=== PATIENT | male | born 1935 | race Two or more races ===

== ENCOUNTER 2024-03-29 18:39 | Inpatient (IN) | payer OTHER ==
[~2024-03-29] VITALS: Ht 167.6 cm; Wt 86.2 kg
[2024-03-29 18:55] LABS: HEMATOCRIT 32.7 % (39.0-48.0); HEMOGLOBIN 10.8 g/dL (13-16.00); MEAN CELL VOLUME 98.5 fL (80.0-100.00); MEAN CORPUSCULAR HEMOGLOBIN 32.5 pg (27.00-32.0); PLATELET COUNT 324 K/uL (150-450); RED BLOOD COUNT 3.32 M/uL (4.00-6.00); RED CELL DISTRIBUTION WIDTH 15.9 % (11.5-14.5)
[2024-03-29] MEDS ORDERED: NITROGLYCERIN IN 5 % DEXTROSE 50 MG/250 ML KIT IV SCH (19:00)
[2024-03-29 19:18] LABS: INR 1.05; PARTIAL THROMBOPLASTIN TIME 25.6 SECONDS (22.0-34.0); PROTHROMBIN TIME 11.4 SECONDS (9.0-11.5)
[2024-03-29 19:22] LABS: CREATININE SERUM 1.4 mg/dL (0.70-1.30); GFR 47.72; POTASSIUM 5.18 mEq/L (3.5-5.1)
[2024-03-29] MEDS ORDERED: GLUMETZA1000 MG (19:39)
[2024-03-29] MEDS ORDERED: MEMANTINE HCL10 MG (19:39)
[2024-03-29] MEDS ORDERED: TAMS0.4C (19:39)
[2024-03-29] MEDS ORDERED: AMLODIPINE-OLM1 EAC2 (19:40)
[2024-03-29] MEDS ORDERED: COZAAR25 MG (19:40)
[2024-03-29] MEDS ORDERED: TOPROL XL25 M1 (19:40)
[2024-03-29] MEDS ORDERED: PROTONIX40 MG (19:40)
[2024-03-29] MEDS ORDERED: PRAVASTATIN SOD10 MG (19:40)
[2024-03-29] MEDS ORDERED: ARICEPT5 MG (19:40)
[2024-03-29] MEDS ORDERED: ZOLOFT25 MG (19:41)
[2024-03-29] MEDS ORDERED: MIRTAZAPINE7.5 MG (19:41)
[2024-03-29] MEDS ORDERED: OXYBUTYNIN CHL2.5 MG (19:41)
[2024-03-29] MEDS ORDERED: SINGULAIR4 MG (19:41)
[2024-03-29] MEDS ORDERED: RESTORIL7.5 MG (19:41)
--- NOTE | 2024-03-29 19:42 | NUR ---
SE RECIBE PTE ALERTA Y ORIENTADO X 3 ESFERAS EN AMBULANCIA EN COMPANIA DE FAMILIAR QUIEN REFIERE DIFICULTAD RESP DESDE HACE VARIOS SALDIVAR,PTE PRESENTA DIFICULTAD REP CON USO DE MUSCULOS ACCESORIOS CON [place] NON-REBEATRING.VENOPUNCION INFILTRADA,SE RETIRA LA MISMA.SE UBICA EN AREA DE CRITICO Y SE PRESENTA A DRA SHORT.SE LE EXTRAEN MUESTRAS BAJO MEDIDAS ASEPTICAS,SE CANALIZA Y SE ADMINISTRAN MEDICAMENTOS MIAN ORDEN MEDICA.SE INSERTA MACARIO,SE [place] PANAL,SE CONECTA A MOMITOR CARDIACO Y OXIMETRIA,SE REALIZA EKG,SE NOTIFICAN ABG A MR SOLIS Y BPAP. PARAMETROS NIV-ST RR-10 O2-50% PEEP-6 I-8.SE YVONNE BAJO OBSERVCION POR CAMBIOS.
--- NOTE | 2024-03-29 20:27 | NUR ---
SE RECIBE A PTE EN EL AREA DE CRITICO, SE LE COLOCA MONITOR CARDIACO Y OXIMETRIA CONTINUA. SE LE ORIENTA SOBRE TX MEDICO LO CUAL REFIERE ENTENDER Y ACEPTAR. SE LE REALIZAN MUESTRAS DE LAB BAJO MEDIDAS ASEPTICAS Y SE LE ADMINISTRA MEDICAMENTOS MIAN ORDEN MEDICA. SE LE COLOCA TRIDIL A 3ML/HR. SE LE COLOCA MACARIO, BAJANDO A GRAVEDAD. TIENE BIPAP TOLERANDO AL MOMENTO. PENDIENTE ABG Y CONSULTA PARA ADMISION
[2024-03-29] MEDS ORDERED: FUROsemide 20 MG/2 ML VIAL IV SCH (20:31)
[2024-03-29] MEDS ORDERED: IPRATROPIUM BROMIDE 0.5 MG/2.5 ML AMPUL.NEB IH SCH (20:34)
[2024-03-29 20:42] LABS: URINE APPEARANCE Clear; URINE BILIRRUBIN Negative (NEGATIVE); URINE BLOOD Negative; URINE COLOR Yellow; URINE GLUCOSE Negative (NEGATIVE); URINE KETONE Negative (NEGATIVE); URINE LEUKOCYTE Negative; URINE NITRATE Negative; URINE PROTEIN Negative (NEGATIVE); URINE UROBILINOGEN 0.2 E.U./dl
[2024-03-29] MEDS ORDERED: CEFTRIAXONE SODIUM 2,000 MG in 0.9 % SODIUM CHLORIDE 100 ML IV SCH (20:45)
[2024-03-29] MEDS ORDERED: ACETAMINOPHEN 500 MG GEL..CAP PO PRN (20:45)
[2024-03-29] MEDS ORDERED: DIPHENHYDRAMINE HCL 50 MG/ML VIAL 1ML IV ONE (20:45)
[2024-03-29] MEDS ORDERED: AZITHROMYCIN 500 MG in DEXTROSE 5 % IN WATER 250 ML IV SCH (20:45)
[2024-03-29 20:46] LABS: URINE BACTERIA 74.2 uL (0.0-1933); URINE WBC 9.2 uL (0.0-23.2)
[2024-03-29 20:50] LABS: URINE CAST 1.22 uL (0.0-1.40); URINE EPITHELIAL CELLS 1.2 uL (0.0-38.8); URINE RBC 1.5 uL (0.0-20.8)
[2024-03-29 20:56] VITALS: BP 114/59; O2SAT 99
[2024-03-29 21:35] LABS: ABG PH 7.373 (7.35-7.45); ABG PO2 81.3 mmHg (80-100); ABG pCO2 41.8 mmHg (35-45); BASE EXCESS -1.4 mmol/l; BICARBONATE 23.8 mmol/l (23-25); SaO2 95.5 %; Tco2 25.1 mmol/l
[2024-03-29 21:36] LABS: o2 50 %; puncture site RADIAL RIGHT
[2024-03-29 23:00] VITALS: BP 118/64; O2SAT 95
[2024-03-30] VITALS (13 sets, daily range): BP systolic 109–153; BP diastolic 56–78; O2SAT 94–100
[2024-03-30 07:17] LABS: TSH 0.848 uIU/mL (0.358-3.74)
[2024-03-30 07:18] LABS: MAGNESIUM 1.4 mg/dL (1.8-2.4)
[2024-03-30] MEDS ORDERED: ENOXAPARIN SODIUM 40 MG/0.4 ML SYRINGE SUBCUTANEO SCH (09:00)
[2024-03-30] MEDS ORDERED: MEMANTINE HCL 10 MG TABLET PO SCH (09:00)
[2024-03-30] MEDS ORDERED: ATORVASTATIN CALCIUM 40 MG TABLET PO SCH (09:00)
[2024-03-30] MEDS ORDERED: FAMOTIDINE/PF 20 MG in 0.9 % SODIUM CHLORIDE 8 ML IV PUSH SCH (09:00)
[2024-03-30] MEDS ORDERED: CEFTRIAXONE SODIUM 2,000 MG in 0.9 % SODIUM CHLORIDE 100 ML IV SCH (09:00)
[2024-03-30] MEDS ORDERED: TAMSULOSIN HCL 0.4 MG CAP PO SCH (09:00)
[2024-03-30] MEDS ORDERED: FINASTERIDE 5 MG TABLET PO SCH (09:00)
[2024-03-30 14:09] LABS: ABG PH 7.347 (7.35-7.45); ABG PO2 111.3 mmHg (80-100); ABG pCO2 44.3 mmHg (35-45); BASE EXCESS -2.1 mmol/l; BICARBONATE 23.7 mmol/l (23-25); Tco2 25.1 mmol/l; o2 100 %
[2024-03-30 14:10] LABS: allen test SATISFACTORY; puncture site RADIAL RIGHT
[2024-03-30 14:14] LABS: ABG PH 7.392 (7.35-7.45); ABG PO2 70.7 mmHg (80-100); ABG pCO2 41.2 mmHg (35-45); BASE EXCESS -0.5 mmol/l; BICARBONATE 24.5 mmol/l (23-25); SaO2 93.8 %; Tco2 25.7 mmol/l
[2024-03-30 14:15] LABS: allen test SATISFACTORY; o2 50 %; puncture site RADIAL RIGHT
[2024-03-30] MEDS ORDERED: levoFLOXacin IN DEXTROSE 5 % 150 ML IV SCH (14:15)
[2024-03-30] MEDS ORDERED: DONEPEZIL HCL 5 MG TABLET PO SCH (17:00)
[2024-03-30] MEDS ORDERED: CEFEPIME HCL 2,000 MG VIAL IV SCH (17:00)
[2024-03-31] VITALS (18 sets, daily range): BP systolic 108–173; BP diastolic 56–112; O2SAT 90–100
[2024-03-31] MEDS ORDERED: HALOPERIDOL LACTATE 5 MG/ML AMPUL IM STA (01:18)
[2024-03-31] MEDS ORDERED: DIPHENHYDRAMINE HCL 50 MG/ML VIAL 1ML IM STA (01:18)
[2024-03-31 08:42] LABS: ALBUMIN 2.6 gm/dL (3.4-5.0); BILIRUBIN TOTAL 0.42 mg/dL (0.3-1.2); CALCIUM 8.9 mg/dL (8.5-10.1); CREATININE SERUM 1.19 mg/dL (0.70-1.30); GFR 57.56; MAGNESIUM 1.5 mg/dL (1.8-2.4); POTASSIUM 4.58 mEq/L (3.5-5.1); TOTAL PROTEIN 6.6 gm/dL (6.4-8.2)
[2024-03-31] MEDS ORDERED: NITROGLYCERIN IN 5 % DEXTROSE 250 ML IV SCH (08:45)
[2024-03-31 09:14] LABS: HEMATOCRIT 29.4 % (39.0-48.0); HEMOGLOBIN 10.1 g/dL (13-16.00); MEAN CELL VOLUME 97.7 fL (80.0-100.00); MEAN CORPUSCULAR HEMOGLOBIN 33.5 pg (27.00-32.0); MEAN CORPUSCULAR HGB CONC 34.3 g/dl (32.0-36.0); PLATELET COUNT 341 K/uL (150-450); RED BLOOD COUNT 3.01 M/uL (4.00-6.00); RED CELL DISTRIBUTION WIDTH 16.2 % (11.5-14.5)
[2024-03-31 09:39] LABS: MYCOPLASMA PNEUMONIAE IGM NON REACTIVE (NO REACTIVE)
[2024-03-31 12:24] LABS: ABG PH 7.394 (7.35-7.45); ABG PO2 65.1 mmHg (80-100); ABG pCO2 38.1 mmHg (35-45); BASE EXCESS -1.7 mmol/l; BICARBONATE 22.8 mmol/l (23-25); SaO2 92.2 %; Tco2 23.9 mmol/l; allen test SATISFACTORY; o2 50 %; puncture site RADIAL RIGHT
[2024-03-31] MEDS ORDERED: QUETIAPINE FUMARATE 25 MG TABLET PO SCH (17:00)
[2024-04-01] VITALS (17 sets, daily range): BP systolic 119–181; BP diastolic 56–88; O2SAT 80–98
[2024-04-01] MEDS ORDERED: HALOPERIDOL LACTATE 5 MG/ML AMPUL IM PRN (09:15)
[2024-04-01] MEDS ORDERED: DIPHENHYDRAMINE HCL 50 MG/ML VIAL 1ML IM PRN (09:15)
[2024-04-01 10:27] LABS: ABG PH 7.413 (7.35-7.45); ABG PO2 102.7 mmHg (80-100); ABG pCO2 34.4 mmHg (35-45); BASE EXCESS -2.3 mmol/l; BICARBONATE 21.5 mmol/l (23-25); SaO2 97.9 %; Tco2 22.5 mmol/l
[2024-04-01 10:28] LABS: allen test SATISFACTORY; o2 100 %; puncture site RADIAL RIGHT
[2024-04-02] VITALS (16 sets, daily range): BP systolic 101–180; BP diastolic 54–97; O2SAT 74–99
[2024-04-02 12:33] LABS: ALBUMIN 2.2 gm/dL (3.4-5.0); BILIRUBIN TOTAL 1.16 mg/dL (0.3-1.2); CALCIUM 10.2 mg/dL (8.5-10.1); CREATININE SERUM 1.94 mg/dL (0.70-1.30); GFR 32.75; GLOBULINA 5.8 G/DL (2.4-3.5); POTASSIUM 3.8 mEq/L (3.5-5.1)
[2024-04-02 15:10] LABS: ABG PH 7.437 (7.35-7.45); ABG PO2 63.5 mmHg (80-100); ABG pCO2 35.9 mmHg (35-45); BASE EXCESS -0.1 mmol/l; BICARBONATE 23.7 mmol/l (23-25); SaO2 92.8 %
[2024-04-02 15:11] LABS: Tco2 24.8 mmol/l; allen test SATISFACTORY; o2 100 %; puncture site RADIAL RIGHT
[2024-04-02] MEDS ORDERED: MEROPENEM 500 MG/VIAL VIAL IV SCH (17:00)
[2024-04-02] MEDS ORDERED: DOXYCYCLINE HYCLATE 100MG IV SCH (17:00)
[2024-04-03] MEDS ORDERED: FUROsemide 20 MG/2 ML VIAL IV SCH (09:00)
== END 2024-04-02 20:45 | disposition expired | DRG 189 ==
LOC: ER 18:39 → ICU-2 20:39
PROVIDERS: Emergency Medicine; Emergency Medicine Pediatric Emergency Medicine; General Practice; Internal Medicine; Internal Medicine Infectious Disease; Internal Medicine Nephrology; ADMIT Internal Medicine; ATTEND Internal Medicine
PROC: B24BZZZ Ultrasonography of Heart with Aorta (ICD-10-PCS; principal; 2024-03-29)
PROC: 5A09457 Assistance with Respiratory Ventilation, 24-96 Consecutive Hours, Continuous Positive Airway Pressure (ICD-10-PCS; 2024-03-29)
DX: J96.20 Acute and chronic respiratory failure, unspecified whether with hypoxia or hypercapnia (principal); J18.9 Pneumonia, unspecified organism; N17.9 Acute kidney failure, unspecified; E87.0 Hyperosmolality and hypernatremia; I11.0 Hypertensive heart disease with heart failure; I50.9 Heart failure, unspecified; R57.0 Cardiogenic shock; E78.5 Hyperlipidemia, unspecified; G30.9 Alzheimer's disease, unspecified; F02.80 Dementia in other diseases classified elsewhere, unspecified severity, without behavioral disturbance, psychotic disturbance, mood disturbance, and anxiety; I25.10 Atherosclerotic heart disease of native coronary artery without angina pectoris; N40.0 Benign prostatic hyperplasia without lower urinary tract symptoms; I48.91 Unspecified atrial fibrillation